=== PATIENT | male | born 1975 | race Caucasian/White ===

== ENCOUNTER 2021-09-01 11:12 | Emergency (ER) | payer SELFPAY ==
[2021-09-02 09:51] LABS: SARS-CoV-2 PCR by NAA Not Detected (NotDetected)
== END 2021-09-01 11:52 | disposition home or self-care (01) ==
LOC: BURERS 11:12
DX: J06.9 Acute upper respiratory infection, unspecified (principal); Z20.822 Contact with and (suspected) exposure to COVID-19; F17.210 Nicotine dependence, cigarettes, uncomplicated
CPT/HCPCS: 99283; U0003; U0005

== ENCOUNTER 2024-08-17 13:46 | Emergency (ER) | payer SELFPAY ==
[~2024-08-17 13:46] MED LIST: Iopamidol 370 76% 100 ML VIAL ONE
[2024-08-17] MEDS ORDERED: Morphine 4 MG/ML VIAL ONE (14:10)
[2024-08-17] MEDS ORDERED: Ondansetron PF 4 MG/2 ML Vial ONE (14:10)
[2024-08-17 14:18] LABS: #Basophils 0.1 thou/uL (0.0-0.2); #Eosinophils 0.1 thou/uL (0.0-0.7); #Lymphocytes 2.5 thou/uL (1.20-3.40); #Monocytes 0.7 thou/uL (0.11-0.59); #Neutrophils 5.6 thou/uL (1.40-6.50); %Basophils 1.3 % (0.0-1.0); %Eosinophils 1.2 % (0.0-10.0); %Monocytes 7.4 % (0.0-10.0); %Neutrophils 62.1 % (42.0-75.0); Hematocrit 48.9 % (42.0-52.0); Hemoglobin 16.6 g/dL (14.0-18.0); Mean Corpuscular Hemoglobin 29.3 pg (27.0-31.0); Mean Corpuscular Volume 86.4 fl (78.0-98.0); Mean Platelet Volume 7.1 fL (7.4-10.4); Platelet Count 342 10x3/uL (130-400); RBC Distribution Width 10.8 % (11.5-14.5); Red Blood Cell (RBC) Count 5.65 mill/uL (4.70-6.10); White Blood Cell (WBC) Count 9.1 10x3/uL (4.8-10.8)
[2024-08-17 14:58] LABS: ALT (SGPT) 22 U/L (8-55); AST (SGOT) 17 U/L (5-34); Albumin 4.1 g/dL (3.5-5.0); Alkaline Phosphatase 66 U/L (40-110); Anion Gap 17 mmol/L (10-20); BUN (Urea Nitrogen) 12 mg/dL (8.9-20.6); Bilirubin, Total 0.7 mg/dL (0.2-1.2); Calc. Creatinine Clearance 0 mL/min (70-130); Calcium 9.7 mg/dL (7.8-10.44); Carbon Dioxide 18 mmol/L (22-29); Chloride 105 mmol/L (98-107); Estimated GFR 96; Globulin 3.4 g/dL (2.4-3.5); Glucose 101 mg/dL (70-105); Potassium 3.6 mmol/L (3.5-5.1); Protein, Total 7.5 g/dL (6.0-8.3); Sodium 136 mmol/L (136-145)
[2024-08-17] MEDS ORDERED: HYDROmorphone 0.5 MG/0.5 ML SYRINGE ONE (15:05)
[2024-08-17 15:52] LABS: Bilirubin Negative (Negative); Blood, Urine Trace (Negative); Glucose, Urine (Dipstick) Negative (Negative); Ketone, Urine 15 mg/dL (Negative); Leukocyte Negative (Negative); Nitrite Positive (Negative); Protein, Urine (Dipstick) Negative (Neg-Trace); Specific Gravity, Urine 1.015 (1.005-1.030); Urobilinogen 0.2 mg/dL (Less than 2); pH, Urine 8.5 (5.0-9.0)
[2024-08-17 15:54] LABS: Bacteria/HPF 3+ HPF (None Seen); CAUTI Indications for Culture Dysuria,urgency,freq; Clarity Hazy (Clear); RBC/HPF 0-3 HPF (0-3); Squamous Epithelial None Seen HPF (0-3); WBC/HPF 0-3 HPF (0-3)
[2024-08-17 15:56] LABS: Urine Culture Reflex No No
[2024-08-17 16:00] LABS: Amphetamine Detected (NotDetected); Cocaine Metabolite Screen Not Detected (NotDetected); Methamphetamine Detected (NotDetected); Opiate Screen Detected (NotDetected); Phencyclidine (PCP) Not Detected (NotDetected); THC/Cannabinoid Screen Detected (NotDetected)
[2024-08-17 16:01] LABS: Barbiturates Screen Not Detected (NotDetected); Benzodiazepine Screen Not Detected (NotDetected); Methadone Not Detected (NotDetected); Oxycodone Screen Not Detected (NotDetected); Tricyclic Screen Not Detected (NotDetected)
== END 2024-08-17 15:47 | disposition short-term general hospital (02) ==
LOC: BURERS 13:46
DX: K43.7 Other and unspecified ventral hernia with gangrene (principal); K42.0 Umbilical hernia with obstruction, without gangrene; F17.210 Nicotine dependence, cigarettes, uncomplicated
CPT/HCPCS: 36415; 74177; 80053; 80306; 81001; 83605; 85025; 96374; 96375; J1171; J2272; J2405; Q9967